=== PATIENT | male | born 1985 | race Caucasian/White ===

== ENCOUNTER 2023-10-10 14:57 | Emergency (ER) | payer BC, SELFPAY ==
[2023-10-10 14:58] VITALS: BP 149/94; PULSE 82; RESP 18; TEMP 36.7; O2SAT 99; BMI 47.4
--- NOTE | 2023-10-10 15:16 | EDS_ITS ---
HPI History of Present Illness Chief Complaint: Back Informant: patient Onset/Context/Timing Onset: Days Timing: Continuous Quality: Sharp Current Severity: Mild Maximum Severity: Moderate Worsened by: improves with Movement Relieved by: Remaining Still Associated Symptoms Associated Symptoms: Negative for Numbness, Tingling, Radiation to Right Leg, Radiation to Left Leg, Fever, Abdominal Pain, Dysuria, Unable to Ambulate, Unable to Transfer, Urinary Retention, Urinary Incontinence, Constipation or Fecal Incontinence Narrative Narrative: 38-year-old male no significant past medical history no significant surgeries. Has had left lateral rib cage and rib back pain for about a week. Slightly worse. No shortness of breath. Worse with movement. No history of any type of trauma. No prior history. No fever or cough. No hemoptysis. Never anything like this before. No chest pain. Prior similar symptoms: No Recent Illness/Hospitalization: No PFSH PFSH Medical History no medical history no medical history Allergy/AdvReac Type Severity Reaction Status Date / Time No Known Allergies Allergy Verified 10/10/23 14:58 Social History Smoking Status: Current every day smoker ROS ROS ED ROS Narrative Denies recent illness. Constitutional Constitutional ED: Denies fever(s) Eyes Eyes: Denies blurry vision ENT ENT ED: Denies ear pain Cardiovascular Cardiovascular: Denies chest pain Respiratory/Chest Respiratory/Chest: Denies dyspnea Gastrointestinal Gastrointestinal: Denies abdominal pain Genitourinary Genitourinary ED: Denies dysuria or hematuria Musculoskeletal Musculoskeletal: Denies arthralgias Integumentary Denies abscess Neurologic Neurologic: Denies headache(s) Psychiatric Psychiatric: Denies anxiety or depression Endocrine Endocrinology: Denies cold intolerance or heat intolerance Hematologic/Lymphatic Hematologic/Lymphatic: Denies easy bleeding or easy bruising Allergic/Immunologic Allergic/Immunologic ED: Denies mouth swelling or tongue swelling EXAM Physical Exam Narrative Exam Narrative: Well-appearing 38-year-old male. Vital signs are stable afebrile. H EENT exam unremarkable. Neck nontender. Lungs clear equal symmetrical bilaterally. Heart regular rate and rhythm no murmur. Anterior chest wall and ribs are nontender. Back there is no spine tenderness. His left lower lateral and posterior rib there is tenderness. There is no ecchymosis or bruising. No subcu air or crepitance. No signs of trauma. Abdomen is soft and nontender. No peritoneal signs. Moving all 4 extremities. 5 out of 5 chief of anesthesiology strength. Dorsi plantarflexion intact. Calves are nontender. No edema. He is awake and alert. No focal motor deficits. Const Vital Signs: 10/10/23 14:58 Temperature 98.1 F Temperature Source Temporal Pulse Rate 82 Respiratory Rate 18 Blood Pressure 149/94 H Blood Pressure Mean 112 Pulse Ox 99 Oxygen Delivery Method Room Air Positive well nourished and well developed; Negative for cachectic, contractures or unkempt General Appearance ED: well developed and NAD; Negative for unkempt, cachectic, contractures or pallor Nutritional Appearance: Negative for cachectic HEENT Reports moist mucous membranes; Denies dry mucous membranes Negative for trauma or tenderness Mouth ED: No dry mucous membranes Mouth: No dry mucous membranes Eyes PERRL and EOMs intact bilaterally General Eye ED: Negative for pale conjunctiva or scleral icterus Neck no lymphadenopathy, supple and no JVD General: Negative for tenderness Thyroid: Negative for other Chest Wall Chest: Negative for other Resp normal respiratory effort and clear to auscultation bilaterally Effort and Inspection: Negative for pain with movement Auscultation: Negative for rales, rhonchi, wheezes or diminished lung sounds Percussion: Negative for other Cardio regular rate, regular rhythm, S1 normal heart sound, S2 normal heart sound and no murmurs Palpation: Negative for palpable S3 Rate: Negative for bradycardia or tachycardic Rhythm: Negative for abnormal rhythm Bruits: Negative for other GI normal to inspection, nondistended, normoactive bowel sounds, soft to palpation, non-tender and no masses Inspection: Negative for abdominal distention Palpation: Negative for tender, guarding or rebound tenderness present Back/Spine normal to inspection; Negative for no thoracic nor lumbar tenderness Back/Spine Narrative: Left lower lateral rib cage tenderness. No crepitus or subcu air. No signs of trauma or bruising. Cervical Spine: Negative for cervical spine tenderness and Negative for paracervical muscle tenderness Lumbar Spine / Lower Back: Negative for ROM limited Extremity normal to inspection and no clubbing, cyanosis or edema General Extremety ED: Negative for edema or tenderness General Extremity: Negative for edema Neuro oriented x3 and no sensory deficits noted Sensorium / Orientation: alert; Negative for confused, lethargic or stuporous Motor Exam: strength 5/5 throughout Psych mental status grossly normal Appearance: Negative for unkempt Attitude: No agitated Mood & Affect: Negative for depressed, sad or tearful Skin no rashes or lesions noted and no wounds General Skin Exam: Negative for jaundice or pallor Lesions: No lesion noted Rashes: No rashes noted Trauma: Negative for abrasion or puncture Wounds: Negative for wounds noted MDM MDM MDM Narrative Medical decision making narrative: 38-year-old male no seen past medical history with atraumatic left lateral rib cage pain. Chest x-ray being obtained. This does not sound cardiac at all. It does not sound infectious. He is not short of breath. He has no history or risk factors for DVT or PE. Blood work I do not think would be beneficial. Repeat exam patient is doing well at 4:00. I think this is all musculoskeletal pain is reproducible. It does not sound cardiac. It is worse with movement. He has no risk factors or history of DVT or PE. He will be discharged home. Anti-inflammatories and Tylenol. Follow-up if not improving. History & Record Review Discussion w/independent historian: Patient Additional record(s) reviewed:: Prior inpatient record, Prior outpatient record, Prior ED visit and Prior labs Radiography Chest X-Ray - ED: 2 View, Read by ED Physician, Read by Radiologist, Normal, Heart, Lungs, Mediastinum, Bony Structures and No Acute Disease Diagnostic Testing: Clinical Impression(s) from Imaging Studies Chest X-Ray 10/10/23 15:25 IMPRESSION: No acute findings in the chest. Electronically Signed: Jovanny Luther MD at 15:54 EDT Reading Location ID and State: [facility] / [place] , Service support , Chest x-ray 2 views, interpreted by myself and radiologist shows no acute abnormality. Normal cardiac silhouette. Normal lung [place]. Normal mediastinum. Normal ribs. I did go over that with the patient. Discharge Plan Triage Chief Complaint: Back ED Provider: Louis Boyle Dx/Rx/DC Orders Clinical Impression: Intercostal muscle strain Instructions: ED Back Sprain/Strain Primary Care Provider: Care Physician,No Primary Referrals: Dylon Montez MD [Med Staff - [employer]] - 1 Week if not improving Care Physician,No Primary [Primary Care Provider] - Activity Restrictions/Additional Instructions: Chest x-ray was normal. I think is a strain of the muscle between the ribs. Motrin for pain and inflammation 3 Motrin 3-4 times a day. Tylenol in between. Hot shower, warm bath. Ice to the area. Massage. This should progressively start getting better. If not follow-up. Print Language: Cypriot Disposition Disposition: Home, Self Care
--- NOTE | 2023-10-10 15:25 | RAD_ITS ---
EXAM: XR CHEST, 2 VIEWS CLINICAL INDICATION: left posterior rib pain TECHNIQUE: Frontal and lateral views of the chest. COMPARISON: 05/08/2013 FINDINGS: LUNGS AND PLEURAL SPACES: Unremarkable. No consolidation or edema. No pneumothorax. No effusion. HEART: Unremarkable. Cardiac silhouette not enlarged. MEDIASTINUM: Central airways and mediastinal contour are unremarkable. BONES/JOINTS: Mild degenerative changes in the thoracic spine. No acute fracture. SOFT TISSUES: Unremarkable. RAD/Chest PA and Lateral IMPRESSION: No acute findings in the chest. Electronically Signed: Jovanny Luther MD at 15:54 EDT ,
[2023-10-10 16:14] VITALS: BP 132/78; PULSE 67; RESP 18; TEMP 36.6; O2SAT 100
== END 2023-10-10 16:15 | disposition home or self-care (01) ==
PROVIDERS: Emergency Provider Emergency Medicine; Visit Provider Emergency Medicine
DX: S29.011A Strain of muscle and tendon of front wall of thorax, initial encounter (principal); F17.200 Nicotine dependence, unspecified, uncomplicated
CPT/HCPCS: 71046; 99282